=== PATIENT | male | born 1995 ===

== ENCOUNTER 2018-07-26 22:03 | Emergency (ER) | payer SELFPAY ==
--- NOTE | 2018-07-26 22:55 | ED ---
Psychiatric Complaint - HPI Summary HPI Summary: This patient is a 22 year old M presenting to [facility] with a chief complaint of depression since 1 year ago. Patient reports that his girlfriend broke up with him tonight at 18:30 triggering a worsening of his depression. Patient spoke to his friends who were concerned that he would harm himself and they called [facility] to bring him to [facility]. Patient notes that he has spoken to [facility] a few times concerning his depression. Patient notes that he did not want to be alone in his dorm tonight. The patient rates the pain 0/10 in severity. Symptoms aggravated by recent stress. Symptoms alleviated by nothing. Patient denies taking any medications. - History Of Current Complaint Chief Complaint: EDMentalHealth Hx Obtained From: Patient Onset/Duration: Gradual Onset, Lasting Weeks, Still Present Timing: Intermittent Episode Lasting Severity Initially: Mild Severity Currently: None Character: Depressed Aggravating Factor(s): Recent Stress Alleviating Factor(s): Nothing - Allergies/Home Medications Allergies/Adverse Reactions: Allergies Allergy/AdvReac Type Severity Reaction Status Date / Time latex Allergy Rash Verified 07/26/18 22:12 PMH/Surg Hx/FS Hx/Imm Hx Opthamlomology History: Denies: Hx Legally Blind EENT History: Denies: Hx Deafness Psychiatric History: Reports: Hx Depression - Surgical History Surgery Procedure, Year, and Place: none Infectious Disease History: No Infectious Disease History: Denies: Traveled Outside the [place] in Last 30 Days - Family History Known Family History: Positive: None - patient denies relevant FHx - Social History Occupation: Student Lives: Dormitory/Roommates Alcohol Use: None Smoking Status (MU): Never Smoked Tobacco Review of Systems Negative: Fever Negative: Epistaxis Negative: Cough Negative: Vomiting Positive: Depressed All Other Systems Reviewed And Are Negative: Yes Physical Exam - Summary Physical Exam Summary: Appearance: Well-appearing, Well-nourished, lying in bed comfortable Skin: Warm, dry, no obvious rash Eyes: sclera anicteric, no conjunctival pallor ENT: mucous membranes moist Neck: deferred Respiratory: No signs of respiratory distress Cardiovascular: Appears well perfused, pulses are nml Abdomen: deferred Musculoskeletal: Moving all 4 extremities without obvious discomfort Neurological: Awake and alert, mentation is normal, speech is fluent and appropriate Psychiatric: affect is normal, does not appear anxious or depressed Triage Information Reviewed: Yes Vital Signs On Initial Exam: Initial Vitals Temp Pulse Resp BP Pulse Ox 98.6 F 78 16 121/90 97 07/26/18 22:06 07/26/18 22:06 07/26/18 22:06 07/26/18 22:06 07/26/18 22:06 Vital Signs Reviewed: Yes Diagnostics - Vital Signs Vital Signs Temp Pulse Resp BP Pulse Ox 07/26/18 22:06 98.6 F 78 16 121/90 97 - Laboratory Lab Statement: Any lab studies that have been ordered have been reviewed, and results considered in the medical decision making process. Course/Dx - Course Course Of Treatment: This is a 22-year-old college student whose girlfriend broke up with him today. After that he was talking with his friends and expressed some vague suicidal ideation without any plan. He did not feel safe in his dorm alone so is friends arrange for him to be brought here for further evaluation. He does not appear intoxicated or otherwise under the influence. He denies any history of alcohol or drug use. He has no document medical problems and takes no medications. I do not believe he needs any kind of screening laboratory studies at this time, and he is cleared for a mental health evaluation. - Differential Dx/Clinical Impression Provider Diagnosis: Depression Discharge - Sign-Out/Discharge Documenting (check all that apply): Patient Departure - Discharge Plan Condition: Stable Disposition: HOME Referrals: [facility]: Psych Services [Outside] - As Soon As Possible (If you need someone to speak with about how you are feeling. Call them to schedule appointment) [facility]: Director Radio [Outside] - If Needed No Primary Care Phys,[facility] [Primary Care Provider] - - Billing Disposition and Condition Condition: STABLE Disposition: Home - Attestation Statements Document Initiated by Scribe: Yes Documenting Scribe: Loreto Ramirez Provider For Whom Domingoibradha is Documenting (Include Credential): Abhishek Rand MD Scribe Attestation: Loreto Tate, scribed for Abhishek Rand MD on 07/30/18 at 1541. Scribe Documentation Reviewed: Yes Provider Attestation: The documentation as recorded by the scribe, Loreto Ramirez accurately reflects the service I personally performed and the decisions made by me, Abhishek Rand MD
[2018-07-27 03:48] VITALS: BP 118/86
== END 2018-07-27 03:48 | disposition home or self-care (01) ==
LOC: ED 22:03
DX: F32.9 Major depressive disorder, single episode, unspecified (principal)
CPT/HCPCS: 99284